=== PATIENT | female | born 1985 | race Asian ===

== ENCOUNTER 2021-08-30 13:35 | Outpatient (CLI) | payer OTHER, SELFPAY | END 2021-08-30 13:36 | disposition home or self-care (01) | PROVIDERS: Visit Provider Family Medicine | DX: Z20.822 Contact with and (suspected) exposure to COVID-19 (principal) | CPT/HCPCS: 87635 ==

== ENCOUNTER 2021-08-31 14:04 | Outpatient (CLI) | payer BC, SELFPAY ==
[2021-08-31 14:18] VITALS: BP 110/65; PULSE 105; RESP 17; TEMP 37; O2SAT 98; BMI 29.9
[2021-08-31 15:01] VITALS: BP 119/70; PULSE 107; RESP 18; TEMP 37.7; O2SAT 98
[2021-08-31 16:01] VITALS: BP 120/72; RESP 102; TEMP 37.8; O2SAT 98
== END 2021-08-31 14:05 | disposition home or self-care (01) ==
LOC: OPS 14:07
PROVIDERS: PCP Family Medicine Adult Medicine; Visit Provider Family Medicine Adult Medicine
DX: U07.1 COVID-19 (principal)
CPT/HCPCS: 87426; 96365

== ENCOUNTER 2021-09-03 06:00 | Outpatient (CLI) | payer OTHER, SELFPAY ==
[2021-09-03 13:13] LABS: SARS Covid-2 Antigen Positive (Negative)
== END 2021-09-03 06:01 | disposition home or self-care (01) ==
LOC: LAB 09-27 11:40
PROVIDERS: PCP Family Medicine Adult Medicine; Visit Provider Family Medicine
DX: Z20.822 Contact with and (suspected) exposure to COVID-19 (principal)
CPT/HCPCS: 87426

== ENCOUNTER → 2025-07-29 11:48 | Outpatient (BNVA) | payer OTHER, SELFPAY | PROVIDERS: Visit Provider Obstetrics & Gynecology | DX: Z01.419 Encounter for gynecological examination (general) (routine) without abnormal findings (principal) | CPT/HCPCS: 87624 ==

== ENCOUNTER 2025-08-10 08:31 | Outpatient (CLI) | payer OTHER, SELFPAY ==
--- NOTE | 2025-08-10 08:40 | MM_ITS ---
WS: [id number] SCREENING DIGITAL BREAST TOMOSYNTHESIS MAMMOGRAM WITH CAD HISTORY: Z12.39 - Encounter for other screening for malignant neop... COMPARISON: None available. Bilateral CC and MLO with tomosynthesis and synthetic mammography submitted. Computer aided detection analyzed. Breast composition: The breasts are heterogeneously dense, which may obscure small masses. Mass in the medial LEFT breast near 9:00 at an anterior depth. This mass measures 7 x 5 x 8 mm. Suspect this may be benign lymph node. No prior studies for comparison. No suspicious grouping of calcifications or distortion. MM/MM [facility] tomosynthesis [id number] IMPRESSION: BI-RADS: 0 - Incomplete: Need additional imaging evaluation FOLLOW UP: Need Additional Imaging Recommendation: Limited LEFT breast ultrasound.
== END 2025-08-10 08:32 | disposition home or self-care (01) ==
PROVIDERS: PCP Internal Medicine; Visit Provider Obstetrics & Gynecology
DX: Z12.31 Encounter for screening mammogram for malignant neoplasm of breast (principal); R92.333 Mammographic heterogeneous density, bilateral breasts; N63.22 Unspecified lump in the left breast, upper inner quadrant
CPT/HCPCS: 77063; 77067